=== PATIENT | male | born 1990 | race Caucasian/White ===

== ENCOUNTER 2020-06-21 16:43 | Inpatient (IN) | payer OTHER ==
[~2020-06-21] VITALS: Ht 172.7 cm; Wt 77.1 kg
--- NOTE | 2020-06-21 17:00 | NUR ---
SE RECIBE PTE MASCULINO ELMO NO RESPONDE EN AMBULANCIA,PARAMEDICOS REFIEREN AHOGAMIENTO DETRAS DEL HOTEL LA SHAD,SE COLOCA EN MONITOR CARDIACO CRISTI Y OXIMETRIA CONTINUA,SE CANALIZA Y COLOCA IOVF PATENTE,SE ADMNISTRAN MEDICAMENTOS LOS CUALES TOLERA,SE COLOCA QUINTERO SIGUIENDO MEDIDAS ASEPTICAS,[place] DE LOS MEDICAMENTOS PTE RESPONDE,VOMITA CON AMADOR OLOR AL ALCHOL Y FAMILIAR REFIERE INGIRIO BEBUIDAS ALCHOLICAS,SE NOTIFICA A TERAPIA SOBRE PTE SE REALIZAN ABG,SE COLOCA QUINTERO SIGUIENDO MEDOIDAS ASEPTICAS,SE COLOCAN RESTRICCIONES,SE COLOCA BPAP,SE MANTIENE PTE INQUIETO,SE ORIENTA SOBRE IMPORTABCIA DE B PAP.
[2020-06-22] MEDS ORDERED: STRIBILD TABLE1 EACH (08:34)
[2020-06-26] MEDS ORDERED: INTESTINEX680 M1 PO (11:14)
[2020-06-26] MEDS ORDERED: AMOX1TAB5 PO (11:14)
== END 2020-06-26 11:10 | disposition home or self-care (01) | DRG 178 ==
LOC: ER 16:43 → ICU 19:41 → SURG 19:41 → ICU-2 19:41 → ICU 06-22 01:38 → SURG 06-24 19:51
PROVIDERS: ADMIT Specialist; ATTEND Specialist
PROC: 4A033R1 Measurement of Arterial Saturation, Peripheral, Percutaneous Approach (ICD-10-PCS; 2020-06-21)
PROC: 5A09357 Assistance with Respiratory Ventilation, Less than 24 Consecutive Hours, Continuous Positive Airway Pressure (ICD-10-PCS; principal; 2020-06-22)
PROC: 3E0F7SF Introduction of Other Gas into Respiratory Tract, Via Natural or Artificial Opening (ICD-10-PCS; 2020-06-22)
PROC: 3E0F7GC Introduction of Other Therapeutic Substance into Respiratory Tract, Via Natural or Artificial Opening (ICD-10-PCS; 2020-06-22)
PROC: 4A12X4Z Monitoring of Cardiac Electrical Activity, External Approach (ICD-10-PCS; 2020-06-22)
DX: J69.8 Pneumonitis due to inhalation of other solids and liquids (principal); T75.1XXA Unspecified effects of drowning and nonfatal submersion, initial encounter; N17.8 Other acute kidney failure; Z20.828 Contact with and (suspected) exposure to other viral communicable diseases; Z21 Asymptomatic human immunodeficiency virus [HIV] infection status; S05.12XA Contusion of eyeball and orbital tissues, left eye, initial encounter; W18.39XA Other fall on same level, initial encounter; R06.09 Other forms of dyspnea; E86.0 Dehydration